=== PATIENT | male | born 1950 | race Caucasian/White ===

== ENCOUNTER 2018-09-05 11:22 | Inpatient (IN) | payer MEDICARE, OTHER ==
[~2018-09-05] VITALS: Ht 175.3 cm; Wt 101.6 kg
[2018-09-05] VITALS (38 sets, daily range): BP systolic 84–131; BP diastolic 61–97
[~2018-09-05 11:22] MED LIST changes: -APIX5TAB PO; -CALC-687 PO; -CEPH500C PO; -GLYB6TAB3 PO; -HYDR25TA4 PO; -INSU300I SQ; -METF-397 PO; -NEBI5TAB8 PO; -NFNEB10T PO; -POTA99TA21 PO; -SITA100T12 PO; -SULF-222 PO
--- OUTSIDE RECORDS SUMMARY | 2018-09-05 11:33 | XMS REPORT | Continuity of Care Document ---
Author Author [facility] [facility] Organization [facility] Address Unknown Phone Unavailable Allergies There is no data. Medications There is no data. Problems There is no data. Procedures There is no data. Results There is no data. Encounters ACCT No. Visit Date/Time Discharge Status Pt. Type Provider Facility Loc./Unit Complaint 02/201808/31/2018 23:43:42 08/31/2018 23:59:59 CLS Outpatient Divya Martinez
[2018-09-05] MEDS: NS IV 1000 ML 1,000 ML IV SCH ×2 (11:40→12:58)
[2018-09-05 11:41] LABS: BASOPHILS % (AUTO) 0 % (0-10); EOSINOPHILS # (AUTO) 0.2 10^3/uL (0.0-0.3); EOSINOPHILS % (AUTO) 2 % (0-10); HEMATOCRIT 41 % (40-54); HEMOGLOBIN 13.6 G/DL (13.3-17.7); LYMPHOCYTES # (AUTO) 1.7 X 10^3 (1.0-4.0); LYMPHOCYTES % (AUTO) 17 % (12-44); MEAN CORPUSCULAR HEMOGLOBIN 29 PG (25-34); MEAN CORPUSCULAR HGB CONC 33 G/DL (32-36); MEAN CORPUSCULAR VOLUME 87 FL (80-99); MEAN PLATELET VOLUME 8.9 FL (7.4-10.4); MONOCYTES % (AUTO) 10 % (0-12); NEUTROPHILS % (AUTO) 71 % (42-75); PLATELET COUNT 298 10^3/uL (130-400); RED BLOOD COUNT 4.72 10^6/uL (4.35-5.85); RED CELL DISTRIBUTION WIDTH 13.6 % (10.0-14.5); WHITE BLOOD COUNT 9.9 10^3/uL (4.3-11.0)
[2018-09-05] MEDS ORDERED: ADENOSINE 6 MG/2 ML (ADENOCARD) VIAL IV ONE (11:45)
[2018-09-05] MEDS ORDERED: DILTIAZEM 25 MG/5 ML INJ (CARDIZEM) VIAL ONE (11:51)
[2018-09-05] MEDS ORDERED: APIXABAN 5 MG (ELIQUIS) TABLET ONE (11:59)
[2018-09-05] MEDS: APIXABAN 5 MG (ELIQUIS) TABLET PO SCH ×2 (12:00→20:51)
[2018-09-05] MEDS ORDERED: DILTIAZEM IV FOR DRIP 125 MG in NS (IVPB) 100 ML IV SCH (12:00)
[2018-09-05 12:06] LABS: PROTHROMBIN TIME PATIENT 13.4 SEC (12.2-14.7)
[2018-09-05 12:08] LABS: ALANINE AMINOTRANSFERASE 29 U/L (0-55); ALBUMIN 4.2 GM/DL (3.2-4.5); ALKALINE PHOSPHATASE 79 U/L (40-136); BILIRUBIN,TOTAL 0.4 MG/DL (0.1-1.0); BUN/CREATININE RATIO 14; CARBON DIOXIDE 25 MMOL/L (21-32); CHLORIDE 101 MMOL/L (98-107); CREATININE SERUM 1.55 MG/DL (0.60-1.30); GFR ESTIMATED 45; GLUCOSE 121 MG/DL (70-105); LIPASE 20 U/L (8-78); POTASSIUM 4.5 MMOL/L (3.6-5.0); SODIUM 138 MMOL/L (135-145); TOTAL PROTEIN 7.6 GM/DL (6.4-8.2)
--- NOTE | 2018-09-05 12:13 | Consultation-Cardiology ---
HPI-Cardiology Cardiology Consultation Date of Consultation 09/05/18 Date of Admission Time Seen by Provider: 12:08 Indication: tachycardia HPI 68 years old gentleman with history of diabetes mellitus, hypertension, was in his usual state of health, went for routine checkup with his primary care physician, noted to be tachycardic with a heart rate of 160-170. He denied any palpitation, denied any chest pain, no shortness of breath, no syncope or near syncopal episode. Has been having some upper respiratory tract infection and started on Sudafed as an outpatient. He was seen in Dr. Martinez's office and given Bystolic 10 mg and sent to the emergency room where he was noted to be in narrow complex tachycardia with a heart rate 160, I gave him adenosine 6 mg IV which helped identifying the underlying rectum to be atrial flutter. Home Medications & Allergies Allergies: Coded Allergies: No Known Drug Allergies (Unverified , 08/17/11) Home Medication List Reviewed: Yes MFI-Rthleb-Ufruug Hx Patient Social History Marital Status: Employed/Student: employed Past Medical History Past medical history as described below Family Medical History Family Medical Hx Noncontributory to his current condition Review of Systems Constitutional: no symptoms reported, see HPI EENTM: see HPI, no symptoms reported Respiratory: see HPI; No cough, No dyspnea on exertion, No hemoptysis, No orthopnea, No phlegm, No short of breath, No stridor, No wheezing, No other Cardiovascular: see HPI; No chest pain, No edema, No Hx of Intervention, No palpitations, No syncope, No vascular heart diseas, No other Gastrointestinal: see HPI Genitourinary: no symptoms reported, see HPI Musculoskeletal: see HPI, back pain, joint pain Skin: see HPI, other (bruise on his right flank secondary to a fall from a ladder last week, no head trauma) Psychiatric/Neurological: No Symptoms Reported, See HPI Reviewed Test Results Reviewed Test Results Lab Laboratory Tests Test 09/05/18 11:34 Range/Units White Blood Count 9.9 4.3-11.0 10^3/uL Red Blood Count 4.72 4.35-5.85 10^6/uL Hemoglobin 13.6 13.3-17.7 G/DL Hematocrit 41 40-54 % Mean Corpuscular Volume 87 80-99 FL Mean Corpuscular Hemoglobin 29 25-34 PG Mean Corpuscular Hemoglobin Concent 33 32-36 G/DL Red Cell Distribution Width 13.6 10.0-14.5 % Platelet Count 298 130-400 10^3/uL Mean Platelet Volume 8.9 7.4-10.4 FL Neutrophils (%) (Auto) 71 42-75 % Lymphocytes (%) (Auto) 17 12-44 % Monocytes (%) (Auto) 10 0-12 % Eosinophils (%) (Auto) 2 0-10 % Basophils (%) (Auto) 0 0-10 % Neutrophils # (Auto) 7.0 1.8-7.8 X 10^3 Lymphocytes # (Auto) 1.7 1.0-4.0 X 10^3 Monocytes # (Auto) 1.0 0.0-1.0 X 10^3 Eosinophils # (Auto) 0.2 0.0-0.3 10^3/uL Basophils # (Auto) 0.0 0.0-0.1 10^3/uL Prothrombin Time 13.4 12.2-14.7 SEC INR Comment 1.0 0.8-1.4 Activated Partial Thromboplast Time 27 24-35 SEC D-Dimer 2.57 H 0.00-0.49 UG/ML Sodium Level 138 135-145 MMOL/L Potassium Level 4.5 3.6-5.0 MMOL/L Chloride Level 101 98-107 MMOL/L Carbon Dioxide Level 25 21-32 MMOL/L Anion Gap 12 5-14 MMOL/L Blood Urea Nitrogen 22 H 7-18 MG/DL Creatinine 1.55 H 0.60-1.30 MG/DL Estimat Glomerular Filtration Rate 45 BUN/Creatinine Ratio 14 Glucose Level 121 H 70-105 MG/DL Calcium Level 10.0 8.5-10.1 MG/DL Corrected Calcium 9.8 8.5-10.1 MG/DL Magnesium Level 2.0 1.8-2.4 MG/DL Total Bilirubin 0.4 0.1-1.0 MG/DL Aspartate Amino Transf (AST/SGOT) 23 5-34 U/L Alanine Aminotransferase (ALT/SGPT) 29 0-55 U/L Alkaline Phosphatase 79 40-136 U/L Total Protein 7.6 6.4-8.2 GM/DL Albumin 4.2 3.2-4.5 GM/DL Lipase 20 8-78 U/L Physical Exam Vital Signs Capillary Refill : Height, Weight, BMI Height: '" Weight: lbs. oz. kg; BMI Method: General Appearance: No Apparent Distress, WD/WN Eyes: Bilateral Eye Normal Inspection, Bilateral Eye PERRL, Bilateral Eye EOMI HEENT: PERRL/EOMI, TMs Normal, Normal ENT Inspection, Pharynx Normal Neck: Full Range of Motion, Normal Inspection, Non Tender, Supple, Carotid Bruit Respiratory: Chest Non Tender, Lungs Clear, Normal Breath Sounds, No Accessory Muscle Use, No Respiratory Distress Cardiovascular: No Edema, No Gallop, No JVD, No Murmur, Normal Peripheral Pulses, Tachycardia Gastrointestinal: Normal Bowel Sounds, No Organomegaly, No Pulsatile Mass, Non Tender, Soft Back: Normal Inspection, No CVA Tenderness, No Vertebral Tenderness, Other ( right flank bruise) Extremity: Normal Capillary Refill, Normal Inspection, Normal Range of Motion, Non Tender, No Calf Tenderness, No Pedal Edema Neurologic/Psychiatric: Alert, Oriented x3, No Motor/Sensory Deficits, Normal Mood/Affect Skin: Normal Color, Warm/Dry, Ecchymosis (right flank bruise) Lymphatic: No Adenopathy A/P-Cardiology Admission Diagnosis Atrial flutter Hypertension Diabetes mellitus Tachycardia Assessment/Plan Atrial flutter with 2-1 conduction, given Adenosine which helped to identify the underlying rhythm. I will start him on Cardizem drip and a bolus, monitor his tolerance and response. If he did not convert overnight I am planning to do SIMON with electrical cardioversion [id number] score of 3, yearly risk of stroke without oral anticoagulation is 3.2 percent. Patient will be starting on Eliquis the first dose to be given in the emergency room Recent upper respiratory tract infection, took Sudafed earlier today. Urinary tract infection, managed by primary care team Hypertension, poorly controlled blood pressure. Was on hydrochlorothiazide and enalapril as an outpatient. Currently on Cardizem drip, will adjust his medication during the hospital stay Diabetes mellitus, managed by primary care physician History of spinal stenosis with back pain and joint pain Status post recent fall from a ladder, no syncope, no head trauma, has a large bruise on his right flank DAIANA ROSARIO MD Sep 05, 2018 12:13
[2018-09-05 12:15] LABS: MYOGLOBIN SERUM 199.9 NG/ML (10.0-92.0)
--- NOTE | 2018-09-05 12:15 | ED Cardiac General ---
History of Present Illness General Chief Complaint: Cardiac/General Problems Stated Complaint: TACHYCARDIA Source: patient Exam Limitations: no limitations History of Present Illness Date Seen by Provider: Sep 05, 2018 Time Seen by Provider: 11:22 Initial Comments Here with report of fast heart rate. Patient does not feel the fast heart rate and only noted that because he went for evaluation with his primary care Dr. bravo and was found to be tachycardic. He was sent to outpatient services for EKG which notes tachycardia in the rate of 160 and somewhat wide appearing complexes but may be SVT. Patient denies chest pain or breathing problems. Patient did receive by bystolic 10 mg by mouth at his doctor's office. Patient reports taking Sudafed this morning for upper respiratory congestion which is not uncommon for him. Denies nausea or vomiting. Timing/Duration: other (unknown) Severity: moderate Location: other (no chest pain) Activities at Onset: none Prior CP/Workup: no prior chest pain Modifying Factors: improves with rest NTG SL DATABASE ADMINISTRATION MANAGER: No ASA po DATABASE ADMINISTRATION MANAGER: No Associated Systoms: No Chest Pain, No Fever/Chills, No Nausea/Vomiting, No Shortness of Air, No Weakness Allergies and Home Medications Allergies Coded Allergies: No Known Drug Allergies (Unverified , 08/17/11) Home Medications Calcium Carbonate/Mag Oxide/Zn 1 Each Tablet, 1 EACH PO DAILY, (Reported) Enalapril Maleate 20 Mg Tablet, 40 MG PO DAILY, (Reported) Glyburide 5 Mg Tablet, 6 MG PO BIDAC, (Reported) Hydrochlorothiazide 25 Mg Tablet, 1 EACH PO DAILY, (Reported) Pioglitazone Hcl/Metformin Hcl 1 Each Tablet, 1 EACH PO BID, (Reported) Potassium 99 Mg Tablet, 99 MG PO DAILY, (Reported) Silodosin 8 Mg Capsule, 8 MG PO DAILY, (Reported) Sitagliptin Phosphate 100 Mg Tablet, 1 EACH PO DAILY, (Reported) Patient Home Medication List Home Medication List Reviewed: Yes Review of Systems Review of Systems Constitutional: see HPI; No chills, No fever EENTM: No Ear Pain; Nose Congestion, Nose Pain Respiratory: Denies Cough, Denies Shortness of Air Cardiovascular: Denies Chest Pain; Irregular Heart Rate Gastrointestinal: Denies Abdominal Pain, Denies Nausea, Denies Vomiting Genitourinary: No Symptoms Reported Musculoskeletal: no symptoms reported Skin: change in color (mild erythema in the face), rash (rash to the face near the nose which she states is not uncommon) Psychiatric/Neurological: No Symptoms Reported All Other Systems Reviewed Negative Unless Noted: Yes Past Agrmzly-Sawqms-Vjavbq Hx Past Med/Social Hx: Reviewed Nursing Past Med/Soc Hx Patient Social History Alcohol Use: Denies Use Recreational Drug Use: No Smoking Status: Never a Smoker Past Medical History Surgeries: No Respiratory: No Cardiac: Yes Hypertension Neurological: No Reproductive Disorders: Yes (ED) Genitourinary: No Gastrointestinal: No Musculoskeletal: Yes (sciatica) Endocrine: Yes Diabetes, Non-Insulin dep Psychosocial: No Family Medical History Reviewed Nursing Family Hx Physical Exam Vital Signs Capillary Refill : Height, Weight, BMI Height: '" Weight: lbs. oz. kg; BMI Method: General Appearance: No Apparent Distress, WD/WN HEENT: PERRL/EOMI, Pharynx Normal Neck: Non Tender, Supple Respiratory: Lungs Clear, Normal Breath Sounds Cardiovascular: No Murmur, Irregularly Irregular, Tachycardia Gastrointestinal: Normal Bowel Sounds, Non Tender, Soft Extremity: Normal Range of Motion, Non Tender Neurologic/Psychiatric: Alert, Oriented x3 Skin: Warm/Dry, Erythema, Rash, Other (does have mild rash around the lips and nose that he states is related to environmental exposure and the common for him that is associated with some mild erythema) Progress/Results/Core Measures Results/Orders Lab Results Laboratory Tests Test 09/05/18 11:34 Range/Units White Blood Count 9.9 4.3-11.0 10^3/uL Red Blood Count 4.72 4.35-5.85 10^6/uL Hemoglobin 13.6 13.3-17.7 G/DL Hematocrit 41 40-54 % Mean Corpuscular Volume 87 80-99 FL Mean Corpuscular Hemoglobin 29 25-34 PG Mean Corpuscular Hemoglobin Concent 33 32-36 G/DL Red Cell Distribution Width 13.6 10.0-14.5 % Platelet Count 298 130-400 10^3/uL Mean Platelet Volume 8.9 7.4-10.4 FL Neutrophils (%) (Auto) 71 42-75 % Lymphocytes (%) (Auto) 17 12-44 % Monocytes (%) (Auto) 10 0-12 % Eosinophils (%) (Auto) 2 0-10 % Basophils (%) (Auto) 0 0-10 % Neutrophils # (Auto) 7.0 1.8-7.8 X 10^3 Lymphocytes # (Auto) 1.7 1.0-4.0 X 10^3 Monocytes # (Auto) 1.0 0.0-1.0 X 10^3 Eosinophils # (Auto) 0.2 0.0-0.3 10^3/uL Basophils # (Auto) 0.0 0.0-0.1 10^3/uL Prothrombin Time 13.4 12.2-14.7 SEC INR Comment 1.0 0.8-1.4 Activated Partial Thromboplast Time 27 24-35 SEC D-Dimer 2.57 H 0.00-0.49 UG/ML Sodium Level 138 135-145 MMOL/L Potassium Level 4.5 3.6-5.0 MMOL/L Chloride Level 101 98-107 MMOL/L Carbon Dioxide Level 25 21-32 MMOL/L Anion Gap 12 5-14 MMOL/L Blood Urea Nitrogen 22 H 7-18 MG/DL Creatinine 1.55 H 0.60-1.30 MG/DL Estimat Glomerular Filtration Rate 45 BUN/Creatinine Ratio 14 Glucose Level 121 H 70-105 MG/DL Calcium Level 10.0 8.5-10.1 MG/DL Corrected Calcium 9.8 8.5-10.1 MG/DL Magnesium Level 2.0 1.8-2.4 MG/DL Total Bilirubin 0.4 0.1-1.0 MG/DL Aspartate Amino Transf (AST/SGOT) 23 5-34 U/L Alanine Aminotransferase (ALT/SGPT) 29 0-55 U/L Alkaline Phosphatase 79 40-136 U/L Total Protein 7.6 6.4-8.2 GM/DL Albumin 4.2 3.2-4.5 GM/DL Lipase 20 8-78 U/L My Orders Orders - MEG BERTRAND MD Cbc With Automated Diff (09/05/18 11:30) Magnesium (09/05/18 11:30) Chest 1 View, Ap/Pa Only (09/05/18 11:30) Ekg Tracing (09/05/18 11:30) Cardiac Profile 1 (09/05/18 11:30) Comprehensive Metabolic Panel (09/05/18 11:30) Myoglobin Serum (09/05/18 11:30) Protime With Inr (09/05/18 11:30) Partial Thromboplastin Time (09/05/18 11:30) O2 (09/05/18 11:30) Monitor-Rhythm Ecg Trace Only (09/05/18 11:30) Lipid Panel (09/06/18 06:00) Saline Lock/Iv-Start (09/05/18 11:30) Lipase (09/05/18 11:30) Fibrin Degradation Products (09/05/18 11:30) Adenosine Injection (Adenocard Injection (09/05/18 11:45) Diltiazem Injection (Cardizem Injection) (09/05/18 11:51) Ns (Ivpb) (Sodium C... W/Diltiazem Iv Fo (09/05/18 12:00) Apixaban Tablet (Eliquis Tablet) (09/05/18 11:59) Ekg Tracing (09/05/18 12:09) Progress Progress Note : Progress Note Seen and evaluated on arrival. EKG done earlier today reviewed and shows SVT with wide complex. I did discuss the case with Dr. Rodriguez at 1127 and he will come to the emergency department for evaluation due to odd appearing tachycardia that has some wide characteristics especially in the inferior leads. This may be rate dependent. IV, labs, chest x-ray normal saline 1 L bolus and EKG ordered. 1147: Dr. Rodriguez is evaluated. We will gave adenosine and do note atrial flutter underlying. Cardizem bolus at 10 mg IV and drip at 10 mg an hour to be initiated. Eliquis 5 mg by mouth ordered. Patient to be admitted to ICU. I did discuss the case with Dr. Martinez 1210 and she accepts patient for admission, inpatient status with Dr. Rodriguez on consult. Patient also has urinary tract infection that she has been following from the office. She has culture pending there. He is currently on antibiotics but we will initiate Rocephin while in the hospital. Patient has no findings of sepsis and no indication for blood cultures her lactic acid at this point. Tachycardia is related to cardiac etiology and not sepsis. Dr. Martinez and I both agree on this. Admit to the ICU. 1224: Patient more comfortable but heart rate has increased again. Increase Cardizem drip to 20 mg an hour. Initial ECG Impression Date: Sep 05, 2018 Initial ECG Impression Time: 11:26 Initial ECG Rate: 158 Initial ECG Rhythm: SVT Initial ECG Comparisson: Changed Comment SVT with rate of 158. No evidence of ST elevation [place]. Markedly changed from previous of 16 August 2011. Interpreted by me. Consulted with lead systems engineer. EKG : EKG Time: 11:45 Rate: 135 Rhythm: SVT Comment Continued supraventricular tachycardia but notes a flutter underlying rhythm with adenosine administration. No evidence of ST elevation [place]. Interpreted by me. Consulted with lead systems engineer. Departure Communication (Admissions) Time/Spoke to Admitting Phy: 12:10 Time/Spoke to Consulting Phy: 11:27 Impression Primary Impression: Atrial flutter with rapid ventricular response Additional Impression: Urinary tract infection Qualified Codes: N39.0 - Urinary tract infection, site not specified Disposition: ADMITTED INPATIENT Condition: Stable Admissions Decision to Admit Reason: Admit from ER (General) Decision to Admit/Date: Sep 05, 2018 Time/Decision to Admit Time: 11:47 Departure-Patient Inst. Referrals: MILAD MARTINEZ DO (PCP/Family) Primary Care Physician MEG BERTRAND MD Sep 05, 2018 12:15
[2018-09-05] MEDS: DILTIAZEM INJECTION 125 MG in NS (IVPB) 100 ML IV SCH ×2 (12:24→20:47)
--- OUTSIDE RECORDS SUMMARY | 2018-09-05 12:54 | XMS REPORT | Continuity of Care Document ---
Author Author [facility] Organization aa[facility] Address Unknown Phone Unavailable Allergies There is no data. Medications There is no data. Problems There is no data. Procedures There is no data. Results There is no data. Encounters ACCT No. Visit Date/Time Discharge Status Pt. Type Provider Facility Loc./Unit Complaint 02/201808/31/2018 23:43:42 08/31/2018 23:59:59 CLS Outpatient Divya Martinez
--- NOTE | 2018-09-05 13:08 | Diagnostic Imaging Report ---
Indication: Tachycardia. Time of exam: 12:27 PM No prior studies are available for comparison. The heart is mildly enlarged. There is mild central congestion but no overt failure. Right hemidiaphragm is mildly elevated. No effusion is seen. There is no pneumothorax Impression: Mild cardiomegaly and central congestion. Dictated by: Dictated on workstation # [id number]
[2018-09-05] MEDS ORDERED: NS IV 1000 ML 1,000 ML IV SCH (13:45)
[2018-09-05] MEDS ORDERED: POTA99TA21 PO (14:01)
[2018-09-05] MEDS ORDERED: METF-397 PO (14:01)
[2018-09-05] MEDS ORDERED: HYDR25TA4 PO (14:01)
[2018-09-05] MEDS ORDERED: CALC-687 PO (14:01)
[2018-09-05] MEDS ORDERED: SULF-222 PO (14:01)
[2018-09-05] MEDS ORDERED: GLYB6TAB3 PO (14:01)
[2018-09-05] MEDS ORDERED: FLU QUADRIvalent (5+ YOA) 2018-2019 (AFLURIA) 0.5 ML IM ONE (14:30)
[2018-09-05] MEDS: cefTRIAXone 1 GM/NS 50 ML IVPB IV SCH ×2 (14:33)
[2018-09-05] MEDS: inSUlin ASPART (NovoLOG) 1 UNIT/0.01 ML (CHARGE PER UNIT) SC SCH ×2 (14:40→21:43)
[2018-09-05] MEDS ORDERED: INSU300I SQ (14:44)
[2018-09-05] MEDS ORDERED: SITA100T12 PO (14:44)
[2018-09-05] MEDS ORDERED: ENAL20TA PO (14:44)
--- NOTE | 2018-09-05 18:30 | History & Physicial ---
History of Present Illness History of Present Illness Reason for visit/HPI This is a 68 year old male who presented to my office for routine followup on his diabetes, hypertension and renal insufficiency who was noted to be in SVT with a heart rate in the 160s. He denied being symptomatic including denying palpitations, chest pain, dyspnea, dizziness, etc. He did admit to taking sudafed for a cold this morning and also stated he had been taking excedrin for pain in his testicle. He was also found to have a urinary tract infection. I recommended direct admission to the hospital but the patient refused. He did agree to go for a stat EKG which showed a wide QRS complex with RBBB and heart rate of 163. He was instructed to go directly to the emergency room and was given adenosine which then revealed underlying atrial flutter. Cardiology was consulted. He was started on a cardizem drip and admitted to the ICU. Date of Admission Sep 05, 2018 at 12:50 pm Date Seen by a Provider: Sep 05, 2018 Time Seen by a Provider: 10:00 I consulted on this patient on 09/05/18 18:21 Attending Physician Divya Martinez DO Admitting Physician Divya Martinez DO Consult Allergies and Home Medications Allergies Coded Allergies: No Known Drug Allergies (Unverified , 08/17/11) Home Medications Calcium Carbonate/Mag Oxide/Zn 1 Each Tablet, 1 TAB PO DAILY, (Reported) Enalapril Maleate 20 Mg Tablet, 20 MG PO BID, (Reported) LAST FILLED #180 18 Glyburide,Micronized 6 Mg Tablet, 6 MG PO BID, (Reported) Hydrochlorothiazide 25 Mg Tablet, 25 MG PO DAILY, (Reported) Insulin Glargine,Hum.rec.anlog 300 Unit/1 Ml Insuln.pen, 50 UNIT SQ DAILY, ( Reported) Metformin HCl 500 Mg Tablet, 500 MG PO BID, (Reported) Potassium Gluconate 99 Mg Tablet, 99 MG PO DAILY, (Reported) Sitagliptin Phosphate 100 Mg Tablet, 100 MG PO DAILY, (Reported) Sulfamethoxazole/Trimethoprim 1 Each Tablet, 1 TAB PO BID PRN for UTI, (Reported ) Patient Home Medication List Home Medication List Reviewed: Yes Past Ighkqnv-Qmgsiw-Forgjy Hx Patient Social History Marrital Status: Employed/Student: employed Alcohol Use: Denies Use Recreational Drug Use: No Smoking Status: Never a Smoker Physical Abuse Screen: No Sexual Abuse: No Recent Foreign Travel: No Contact w/other who traveled: No Recent Hopitalizations: No Recent Infectious Disease Expo: No Immunizations Up To Date Pediatric: No Seasonal Allergies Seasonal Allergies: No Surgeries No Respiratory No Cardiovascular Yes Hypertension Neurological No Reproductive System Hx Reproductive Disorders: Yes (ED) Sexually Transmitted Disease: No Genitourinary No Kidney Stones, UTI-Chronic Gastrointestinal No Musculoskeletal No Endocrine History of Endocrine Disorders: Yes Endocrine Disorders: Diabetes, Non-Insulin dep Are Your Blood Sugars Over 250: No HEENT History of HEENT Disorders: No Cancer No Psychosocial History of Psychiatric Problem: No Integumentary History of Skin or Integumenta: No Blood Transfusions History of Blood Disorders: No Adverse Reaction to a Blood Tr: No Review of Systems Constitutional: No no symptoms reported, No see HPI, No chills, No diaphoresis , No dizziness, No fever, No malaise, No weakness, No weight gain, No weight loss, No other EENTM: No see HPI, No no symptoms reported, No ear discharge, No hearing loss, No ear pain, No blurred vision, No double vision, No eye pain, No tearing, No vision loss, No dental problems, No hoarseness, No mouth pain, No mouth swelling , No epistaxis, No nose congestion, No nose pain, No throat pain, No throat swelling, No other Respiratory: cough Cardiovascular: No no symptoms reported, No see HPI, No chest pain, No edema, No Hx of Intervention, No palpitations, No syncope, No vascular heart diseas, No other Gastrointestinal: No RUQ, No LUQ, No RLQ, No LLQ, No no symptoms reported, No see HPI, No abdominal pain, No constipation, No diarrhea, No dysphagia, No hematemesis, No heartburn, No jaundice, No loss of appetite, No melena, No nausea, No vomiting, No other Genitourinary: dysuria, other (testicle pain/swelling) Musculoskeletal: No no symptoms reported, No see HPI, No back pain, No gout, No joint pain, No joint swelling, No muscle pain, No muscle stiffness, No muscle cramps, No muscle twitching, No muscle weakness, No neck pain, No other Skin: No no symptoms reported, No see HPI, No change in color, No change in hair/nails, No dryness, No hx of skin cancer, No lesions, No lumps, No pruritus , No rash, No other Psychiatric/Neurological: Denies No Symptoms Reported, Denies See HPI, Denies Anxiety, Denies Depressed, Denies Emotional Problems, Denies Headache, Denies Numbness, Denies Paresthesia, Denies Pre-Existing Deficit, Denies Seizure, Denies Tingling, Denies Tremors, Denies Weakness, Denies Other Physical Exam Vital Signs Vital Signs - First Documented 09/05/18 09/05/18 11:25 13:30 Temp 98.1 Pulse 162 Resp 18 B/P (MAP) 164/108 (126) Pulse Ox 94 O2 Delivery Room Air Capillary Refill : Less Than 3 Seconds Height, Weight, BMI Height: 5'9.00" Weight: 224lbs. 6.0oz. 101.178903oj; 33.1 BMI Method:Stated General Appearance: No Apparent Distress HEENT: Normal ENT Inspection Neck: Supple Respiratory: Lungs Clear Cardiovascular: Systolic Murmur, Gallop/S4, Tachycardia Gastrointestinal: Normal Bowel Sounds, Non Tender, Soft Rectal: Deferred Back: No CVA Tenderness Extremity: Non Tender, No Calf Tenderness, No Pedal Edema Neurologic/Psychiatric: Alert, Oriented x3 Skin: Warm/Dry, Ecchymosis (to right abdomen from recent fall) Comments Laboratory Tests 09/05/18 11:34: White Blood Count 9.9, Red Blood Count 4.72, Hemoglobin 13.6, Hematocrit 41, Mean Corpuscular Volume 87, Mean Corpuscular Hemoglobin 29, Mean Corpuscular Hemoglobin Concent 33, Red Cell Distribution Width 13.6, Platelet Count 298, Mean Platelet Volume 8.9, Neutrophils (%) (Auto) 71, Lymphocytes (%) (Auto) 17, Monocytes (%) (Auto) 10, Eosinophils (%) (Auto) 2, Basophils (%) (Auto) 0, Neutrophils # (Auto) 7.0, Lymphocytes # (Auto) 1.7, Monocytes # (Auto) 1.0, Eosinophils # (Auto) 0.2, Basophils # (Auto) 0.0, Prothrombin Time 13.4, INR Comment 1.0, Activated Partial Thromboplast Time 27, D-Dimer 2.57H, Sodium Level 138, Potassium Level 4.5, Chloride Level 101, Carbon Dioxide Level 25, Anion Gap 12, Blood Urea Nitrogen 22H, Creatinine 1.55H, Estimat Glomerular Filtration Rate 45, BUN/Creatinine Ratio 14, Glucose Level 121H, Calcium Level 10.0, Corrected Calcium 9.8, Magnesium Level 2.0, Total Bilirubin 0.4, Aspartate Amino Transf (AST/SGOT) 23, Alanine Aminotransferase (ALT/SGPT) 29, Alkaline Phosphatase 79, Myoglobin 199.9H, Troponin I < 0.30, Total Protein 7.6 , Albumin 4.2, Lipase 20 09/05/18 14:31: Glucometer 82 09/05/18 17:25: Glucometer 127H Assessment/Plan Assessment and Plan 1. Atrial Flutter--admit to ICU on cardizem drip, eliquis started, plan is cardioversion tomorrow by cardiology unless he converts back to NSR 2. Hypertension--monitor BP on cardizem drip 3. DMII--start accuchecks with SSI 4. Acute on Chronic Renal Insufficiency--hydrate and monitor Cr 5. UTI--cover with rocephin Admission Diagnosis Admission Status: Inpatient Order (span 2 midnights) Reason for Inpatient Admission: Admitted to ICU on cardizem drip Clinical Quality Measures AMI/AHF: ASA po Prior to arrival: No DVT/VTE Risk/Contraindication: Risk Factor Score Per Nursin RFS Level Per Nursing on Admit: 3=High DIVYA MARTINEZ DO Sep 05, 2018 6:30 pm
[2018-09-06] VITALS (28 sets, daily range): BP systolic 78–119; BP diastolic 41–76
[2018-09-06 04:07] LABS: BASOPHILS % (AUTO) 0 % (0-10); EOSINOPHILS # (AUTO) 0.2 10^3/uL (0.0-0.3); EOSINOPHILS % (AUTO) 2 % (0-10); HEMATOCRIT 39 % (40-54); HEMOGLOBIN 12.7 G/DL (13.3-17.7); LYMPHOCYTES # (AUTO) 1.8 X 10^3 (1.0-4.0); LYMPHOCYTES % (AUTO) 15 % (12-44); MEAN CORPUSCULAR HEMOGLOBIN 29 PG (25-34); MEAN CORPUSCULAR HGB CONC 33 G/DL (32-36); MEAN CORPUSCULAR VOLUME 88 FL (80-99); MEAN PLATELET VOLUME 9.3 FL (7.4-10.4); MONOCYTES # (AUTO) 1.1 X 10^3 (0.0-1.0); MONOCYTES % (AUTO) 9 % (0-12); NEUTROPHILS # (AUTO) 8.4 X 10^3 (1.8-7.8); NEUTROPHILS % (AUTO) 73 % (42-75); PLATELET COUNT 296 10^3/uL (130-400); RED BLOOD COUNT 4.43 10^6/uL (4.35-5.85); RED CELL DISTRIBUTION WIDTH 13.5 % (10.0-14.5); WHITE BLOOD COUNT 11.4 10^3/uL (4.3-11.0)
[2018-09-06 04:35] LABS: CREATININE SERUM 1.37 MG/DL (0.60-1.30); PHOSPHORUS 3.4 MG/DL (2.3-4.7); POTASSIUM 4.3 MMOL/L (3.6-5.0)
[2018-09-06] MEDS: inSUlin ASPART (NovoLOG) 1 UNIT/0.01 ML (CHARGE PER UNIT) SC SCH (04:41)
[2018-09-06 05:01] LABS: CHOLESTEROL 152 MG/DL (< 200); HDL CHOLESTEROL 22 MG/DL (40-60); TRIGLYCERIDES 90 MG/DL (<150); VLDL CHOLESTEROL 18 MG/DL (5-40)
[2018-09-06] MEDS ORDERED: POTASSIUM CL 10MEQ/50ML IVPB 50 ML IV SCH (06:00)
[2018-09-06] MEDS ORDERED: KCL 20 MEQ TAB (K-DUR) PO SCH (06:00)
[2018-09-06] MEDS ORDERED: MAGNESIUM 1 GM/100 ML IVPB 100 ML IV SCH (06:00)
--- NOTE | 2018-09-06 07:01 | Diagnostic Imaging Report ---
INDICATION: Heart disease. Comparison made with prior examination 09/05/2018. FINDINGS: The heart size, mediastinal configuration, and pulmonary vascularity are within normal limits. There is no pleural effusion, pneumothorax, or pneumonia. The osseous structures are unremarkable. IMPRESSION: No acute cardiopulmonary abnormality. Dictated by: Dictated on workstation # [id number]
--- NOTE | 2018-09-06 07:04 | Cardiology Progress Note ---
Subjective Date Seen by Provider: Sep 06, 2018 Time Seen by Provider: 06:58 Subjective/Events-last exam Patient is in bed, converted to sinus rhythm early this morning, had few episodes of hypoxemia while asleep Review of Systems General: No Chills, No Night Sweats, No Fatigue, No Malaise, No Appetite, No Other HEENT: No Head Aches, No Visual Changes, No Eye Pain, No Ear Pain, No Dysphasia , No Sinus Congestion, No Post Nasal Drip, No Sore Throat, No Other Pulmonary: No Dyspnea, No Cough, No Pleuritic Chest Pain, No Other Cardiovascular: No: Chest Pain, Palpitations, Orthopnea, Paroxysmal Noc. Dyspnea, Edema, Lt Headedness, Other Objective-Cardiology Exam Last Set of Vital Signs Vital Signs 09/06/18 06:30 Pulse 70 Resp 12 B/P (MAP) 107/60 (76) Pulse Ox 90 O2 Delivery Nasal Cannula O2 Flow Rate 2.00 Capillary Refill : Less Than 3 Seconds I&O Intake and Output 09/06/18 00:00 Intake Total 505 ml Output Total 250 ml Balance 255 ml Intake Oral 380 ml IV Total 125 ml Output Urine Total 250 ml Daily Weight Change No General: Alert, Oriented X3, Cooperative HEENT: Atraumatic, PERRLA Neck: Supple, No JVD, No Thyromegaly Lungs: Clear to Auscultation, Normal Air Movement Heart: Regular Rate, Normal S1, Normal S2, No Murmurs Abdomen: Normal Bowel Sounds, Soft, No Tenderness, No Hepatosplenomegaly, No Masses Extremities: No Clubbing, No Cyanosis, No Edema, Normal Pulses, No Tenderness/ Swelling Skin: No Rashes, No Breakdown, No Significant Lesion Neuro: Normal Gait, Normal Speech, Strength at 5/5 X4 Ext, Normal Tone, Sensation Intact Psych/Mental Status: Mental Status NL, Mood NL Results Lab Laboratory Tests 09/05/18 11:34 09/06/18 03:05 A/P-Cardiology Admission Diagnosis Atrial flutter Hypertension Diabetes mellitus Tachycardia Assessment/Plan Paroxysmal atrial flutter, back to sinus rhythm while on cardizem drip, doing well, underlying cause is probably sleep apnea, need a sleep studly as an outpatient, asking to wait for now [id number] score of 3, yearly risk of stroke without oral anticoagulation is 3.2 percent. Patient will be starting on Eliquis Hypoxemia at night while asleep, probably have sleep apnea, consider sleep study as an outpatient, patient is asking to wait Acute on Chronic renal insuf, dehydration, I will stop potassium and HCTZ and monitor renal function Recent upper respiratory tract infection Urinary tract infection, managed by primary care team Hypertension, good control, stop HCTZ and continue Bystolic and Enalapril Diabetes mellitus, managed by primary care physician History of spinal stenosis with back pain and joint pain Status post recent fall from a ladder, no syncope, no head trauma, has a large bruise on his right flank Clinical Quality Measures AMI/AHF: ASA po Prior to arrival: No DVT/VTE Risk/Contraindication: Risk Factor Score Per Nursin RFS Level Per Nursing on Admit: 3=High DAIANA ROSARIO MD Sep 06, 2018 07:04
[2018-09-06] MEDS ORDERED: NEBI5TAB8 PO (07:05)
[2018-09-06] MEDS ORDERED: APIX5TAB PO (07:05)
--- NOTE | 2018-09-06 07:38 | Pulmonary Consultation ---
History of Present Illness History of Present Illness Date of Consultation 09/06/18 07:24 Time Seen by Provider: 07:24 Date of Admission Reason for Visit: tachycardia History of Present Illness 89yo with hx of DM, HTN, presented to ED secondary to tachycardia rate 160-170. He denied palpitations, CP, SOB, Syncope. Pt was placed on amiodarone after receiving 6mg of Adenosine. RN states pt has obvious severe EMMIE, loud snoring, and witnessed apneas by the RESIDENTIAL [employer] TECHNICIAN. Dr. Rodriguez is consulting me for EMMIE workup. He has not had sleep testing in the past. Allergies and Home Medications Allergies Coded Allergies: No Known Drug Allergies (Unverified , 08/17/11) Home Medications Apixaban 5 Mg Tablet, 5 MG PO BID Prescribed by: DAIANA RODRIGUEZ on 09/06/18 07 Calcium Carbonate/Mag Oxide/Zn 1 Each Tablet, 1 TAB PO DAILY, (Reported) Enalapril Maleate 20 Mg Tablet, 20 MG PO BID, (Reported) LAST FILLED #180 12-22-17 Glyburide,Micronized 6 Mg Tablet, 6 MG PO BID, (Reported) Hydrochlorothiazide 25 Mg Tablet, 25 MG PO DAILY, (Reported) Insulin Glargine,Hum.rec.anlog 300 Unit/1 Ml Insuln.pen, 50 UNIT SQ DAILY, ( Reported) Metformin HCl 500 Mg Tablet, 500 MG PO BID, (Reported) Nebivolol HCl 5 Mg Tablet, 5 MG PO DAILY Prescribed by: DAIANA RODRIGUEZ on 09/06/18 07 Potassium Gluconate 99 Mg Tablet, 99 MG PO DAILY, (Reported) Sitagliptin Phosphate 100 Mg Tablet, 100 MG PO DAILY, (Reported) Sulfamethoxazole/Trimethoprim 1 Each Tablet, 1 TAB PO BID PRN for UTI, (Reported ) Past Ffinhvw-Sgxftv-Aykooq Hx Past Med/Social Hx: Reviewed Nursing Past Med/Soc Hx Patient Social History Alcohol Use: Denies Use Recreational Drug Use: No Smoking Status: Never a Smoker Recent Foreign Travel: No Contact w/Someone Who Travel: No Recent Infectious Disease Expo: No Recent Hopitalizations: No Immunizations Up To Date PED Vaccines UTD: No Seasonal Allergies Seasonal Allergies: No Past Medical History Surgeries: No Respiratory: No Cardiac: Yes Hypertension Neurological: No Reproductive Disorders: Yes (ED) Sexually Transmitted Disease: No Genitourinary: No Kidney Stones, UTI-Chronic Gastrointestinal: No Musculoskeletal: No Endocrine: Yes Diabetes, Non-Insulin dep Are Your Blood Sugars Over 250: No HEENT: No Cancer: No Psychosocial: No Integumentary: No Blood Disorders: No Adverse Reaction/Blood Tranf: No Family Medical History Reviewed Nursing Family Hx Sepsis Event Evaluation Height, Weight, BMI Height: 5'9.00" Weight: 224lbs. 0.6oz. 101.539285hm; 33.1 BMI Method:Stated Exam Exam Vital Signs Date Time Temp Pulse Resp B/P (MAP) Pulse Ox O2 Delivery O2 Flow Rate FiO2 09/06/18 06:30 70 12 107/60 (76) 90 Nasal Cannula 2.00 09/06/18 06:15 66 16 90/70 (77) 87 Nasal Cannula 2.00 09/06/18 06:00 73 18 111/67 (82) 90 Nasal Cannula 2.00 09/06/18 05:45 68 11 105/68 (80) 97 Nasal Cannula 2.00 09/06/18 05:30 63 17 96/63 (74) 92 Nasal Cannula 2.00 09/06/18 05:15 66 16 101/62 (75) 88 Nasal Cannula 2.00 09/06/18 05:00 64 16 107/56 (73) 92 Nasal Cannula 2.00 09/06/18 04:45 65 17 109/68 (82) 94 Nasal Cannula 2.00 09/06/18 04:30 67 16 95/56 (69) 91 Nasal Cannula 2.00 09/06/18 04:15 61 14 93/60 (71) 88 Nasal Cannula 2.00 09/06/18 04:00 65 14 101/62 (75) 95 Nasal Cannula 2.00 09/06/18 04:00 97.2 09/06/18 04:00 Nasal Cannula 2.00 09/06/18 03:45 61 15 78/41 (53) 90 Nasal Cannula 2.00 09/06/18 03:30 68 26 104/58 (73) 95 Nasal Cannula 2.00 09/06/18 03:15 61 12 93/54 (67) 85 Nasal Cannula 2.00 09/06/18 03:00 64 13 101/66 (78) 93 Nasal Cannula 2.00 09/06/18 02:45 59 16 101/59 (73) 91 Nasal Cannula 2.00 09/06/18 02:30 62 16 93/58 (70) 91 Nasal Cannula 2.00 09/06/18 02:15 63 14 102/59 (73) 88 Nasal Cannula 2.00 09/06/18 02:00 62 19 97/62 (74) 88 Nasal Cannula 2.00 09/06/18 01:45 64 18 98/58 (71) 96 Nasal Cannula 2.00 09/06/18 01:30 68 19 96 Nasal Cannula 2.00 09/06/18 01:15 63 26 101/67 (78) 95 Nasal Cannula 2.00 09/06/18 01:08 64 09/06/18 01:00 80 19 108/69 (82) 93 Nasal Cannula 2.00 09/06/18 00:45 79 28 109/71 (84) 96 Nasal Cannula 2.00 09/06/18 00:30 80 16 84/76 (79) 89 Nasal Cannula 2.00 09/06/18 00:15 80 14 115/74 (88) 95 Nasal Cannula 2.00 09/06/18 00:00 Nasal Cannula 2.00 09/06/18 00:00 97.2 97 09/06/18 00:00 79 10 114/65 (81) 95 Nasal Cannula 2.00 09/05/18 23:45 78 12 116/77 (90) 95 Nasal Cannula 2.00 09/05/18 23:30 80 21 116/64 (81) 97 Nasal Cannula 2.00 09/05/18 23:15 80 21 103/77 (86) 96 Nasal Cannula 2.00 09/05/18 23:00 80 26 121/73 (89) 95 Nasal Cannula 2.00 09/05/18 22:45 79 20 114/72 (86) 99 Nasal Cannula 2.00 09/05/18 22:30 80 13 114/97 (103) 97 Nasal Cannula 2.00 09/05/18 22:16 Nasal Cannula 2.00 09/05/18 22:15 80 24 112/72 (85) 90 Room Air 09/05/18 22:00 80 20 108/68 (81) 91 Room Air 09/05/18 21:45 80 25 110/70 (83) 93 Room Air 09/05/18 21:30 80 26 114/77 (89) 97 Room Air 09/05/18 21:15 80 13 107/69 (82) 95 Room Air 09/05/18 21:00 80 17 116/71 (86) 90 Room Air 09/05/18 20:45 80 20 111/75 (87) 92 Room Air 09/05/18 20:30 80 18 116/69 (85) 95 Room Air 09/05/18 20:15 80 10 126/86 (99) 95 Room Air 09/05/18 20:00 90 Room Air 09/05/18 20:00 81 27 113/73 (86) 95 Room Air 09/05/18 19:45 80 20 115/86 (96) 95 Room Air 09/05/18 19:30 128 20 131/83 (99) 95 Room Air 09/05/18 19:24 99.0 138 23 121/92 (102) 96 Room Air 09/05/18 19:15 96 20 117/80 (92) 91 Room Air 09/05/18 19:00 81 19 117/73 (88) Room Air 09/05/18 19:00 81 09/05/18 18:45 103 Room Air 09/05/18 18:30 81 18 107/72 (84) Room Air 09/05/18 18:00 81 34 116/72 (87) Room Air 09/05/18 17:45 130 19 84/61 (69) 90 Room Air 09/05/18 17:30 108 14 105/65 (78) 92 Room Air 09/05/18 17:15 120 24 111/64 (80) 90 Room Air 09/05/18 17:00 134 14 106/96 (99) 96 Room Air 09/05/18 16:55 90 Room Air 09/05/18 16:50 108 44 102/86 (91) 94 Room Air 09/05/18 16:45 120 29 86/66 (73) 96 Room Air 09/05/18 16:45 98.3 09/05/18 16:30 110 18 109/88 (95) 94 Room Air 09/05/18 16:15 86 22 90/71 (77) 95 Room Air 09/05/18 16:00 123 37 96/71 (79) 94 Room Air 09/05/18 15:00 80 19 118/67 (84) Room Air 09/05/18 14:30 79 123/85 (98) Room Air 09/05/18 14:15 80 121/83 (96) Room Air 09/05/18 14:00 80 110/83 (92) Room Air 09/05/18 14:00 Room Air 09/05/18 13:45 80 12 119/84 (96) Room Air 09/05/18 13:30 80 18 116/81 (93) Room Air 09/05/18 13:24 80 09/05/18 12:52 84 18 119/77 (91) 99 09/05/18 11:54 124 18 132/100 99 09/05/18 11:25 98.1 162 18 164/108 (126) 94 I & O 09/06/18 07:00 Intake Total 505 ml Output Total 1100 ml Balance -595 ml Height & Weight Height: 5'9.00" Weight: 224lbs. 0.6oz. 101.076124fk; 33.1 BMI Method:Stated General Appearance: No Apparent Distress HEENT: Normal ENT Inspection Neck: Supple Respiratory: Lungs Clear Cardiovascular: Systolic Murmur, Gallop/S4, Tachycardia Capillary Refill: Less Than 3 Seconds Extremity: Non Tender, No Calf Tenderness, No Pedal Edema Neurologic/Psychiatric: Alert, Oriented x3 Skin: Warm/Dry, Ecchymosis (to right abdomen from recent fall) Lymphatic: No Adenopathy Results Lab Laboratory Tests 09/05/18 11:34 09/06/18 03:05 Assessment/Plan Assessment/Plan Afib RVR -Currently on Amio gtt -Dr. Rodriguez is following Snoring, witnessed apnea by RN, -I will arrange for PSG as out patient. I will see him in my office for follow up. Acute I discussed with patient in detail with at bedside. regarding EMMIE and benefits of CPAP therapy. Pt is going to think about it. He is not sure he would want CPAP therapy even if this prolongs his life expectancy. JESSICA ANN DO Sep 06, 2018 07:38
[2018-09-06] MEDS: APIXABAN 5 MG (ELIQUIS) TABLET PO SCH (08:32)
[2018-09-06] MEDS: cefTRIAXone 1 GM/NS 50 ML IVPB IV SCH ×2 (09:57)
[2018-09-06] MEDS ORDERED: CEPH500C PO (10:22)
[2018-09-06] MEDS ORDERED: NFNEB10T PO (10:22)
--- NOTE | 2018-09-06 10:24 | Discharge Inst-Cardiology ---
Discharge Inst-Cardiac Discharge Medications New, Converted or Re-Newed RX: Transmitted to Pharmacy Patient Instructions Patient Instructions: Fwup with me in 1 week Activity & Diet Discharge Diet: ADA Diet, Cardiac Diet Drink 6-8 Glasses/Fluids/Day: Yes Activity as Tolerated: Yes Orders-Post D/C & Referrals Pneu Vac Indicated: Yes MILAD TRUJILLO DO Sep 06, 2018 10:24 am
--- NOTE | 2018-09-06 11:05 | Discharge Summary ---
Diagnosis/Chief Complaint Date of Admission Sep 05, 2018 at 12:50 pm Date of Discharge Discharge Date: Sep 06, 2018 Discharge Diagnosis 1. Atrial Flutter--resolved 2. Nocturnal Hypoxemia/Apnea--needs sleep study 3. Hypertension 4. Acute on Chronic Renal Insufficiency/Dehydration 5. Diabetes mellitus II 6. UTI 7. Right abdominal wall trauma from recent fall 8. Lumbosacral Degenerative Disc Disease 9. URI Reason Hospital Visit This is a 68 year old male who presented to my office for routine followup on his diabetes, hypertension and renal insufficiency who was noted to be in SVT with a heart rate in the 160s. He denied being symptomatic including denying palpitations, chest pain, dyspnea, dizziness, etc. He did admit to taking sudafed for a cold this morning and also stated he had been taking excedrin for pain in his testicle. He was also found to have a urinary tract infection. I recommended direct admission to the hospital but the patient refused. He did agree to go for a stat EKG which showed a wide QRS complex with RBBB and heart rate of 163. He was instructed to go directly to the emergency room and was given adenosine which then revealed underlying atrial flutter. Cardiology was consulted. He was started on a cardizem drip and admitted to the ICU. Discharge Summary Hospital Course Hospital Course This is a 68 year old male who presented to my office for routine followup on his diabetes, hypertension and renal insufficiency who was noted to be in SVT with a heart rate in the 160s. He denied being symptomatic including denying palpitations, chest pain, dyspnea, dizziness, etc. He did admit to taking sudafed for a cold that morning and also stated he had been taking excedrin for pain in his testicle as well as sciatic pain. He was also found to have a urinary tract infection. I recommended direct admission to the hospital but the patient refused at that time. He did agree to go for a stat EKG which showed a wide QRS complex with RBBB and heart rate of 163. He was instructed to go directly to the emergency room and was given adenosine which then revealed underlying atrial flutter. Cardiology was consulted. He was started on a cardizem drip and admitted to the ICU. He did have episodes of hypoxemia overnight and his states she thinks he has underlying sleep apnea. It was felt that this is the likely source of his atrial flutter. He was given IVFs for his underlying acute renal insufficiency and dehydration and his creatinine improved from 1.55 on admit to 1.3 at discharge. He is instructed to stop his HCTZ which he has been told to do before by myself but always resumes it do to edema. He was also started on eliquis. Cardioversion was planned by cardiology but the patient did convert back to a NSR early on the morning of discharge so he requested to be discharged and complete any further workup as an outpatient. Labs Laboratory Tests 09/05/18 11:34: D-Dimer 2.57H, Blood Urea Nitrogen 22H, Creatinine 1.55H, Glucose Level 121H, Myoglobin 199.9H 09/05/18 14:31: 09/05/18 17:25: Glucometer 127H 09/05/18 21:34: Glucometer 203H 09/06/18 03:05: White Blood Count 11.4H, Hemoglobin 12.7L, Hematocrit 39L, Neutrophils # (Auto) 8.4H, Monocytes # (Auto) 1.1H, Blood Urea Nitrogen 24H, Creatinine 1.37H, Glucose Level 144H, HDL Cholesterol 22L Procedures None. Discharge Physical Examination Allergies: Coded Allergies: No Known Drug Allergies (Unverified , 08/17/11) Vitals & I&Os Vital Signs Date Time Temp Pulse Resp B/P (MAP) Pulse Ox O2 Delivery O2 Flow Rate FiO2 09/06/18 08:00 Nasal Cannula 2.00 09/06/18 08:00 97.0 09/06/18 07:00 74 09/06/18 06:30 12 90 General Appearance: Alert, Oriented X3, Cooperative, No Acute Distress Respiratory: Clear to Auscultation Cardiovascular: Regular Rate (with frequent skipped beats) Abdominal: Normal Bowel Sounds, Soft, No Tenderness Extremities: No Clubbing, No Cyanosis, No Edema Psych/Mental Status: Mental Status NL, Mood NL Discharge Home Medications Reviewed and agree with Discharge Medication list on patient's Discharge Instruction sheet Instructions to Patient/Family Please see electronic discharge instructions given to patient. Clinical Quality Measures AMI/AHF: ASA po Prior to arrival: No DVT/VTE Risk/Contraindication: Risk Factor Score Per Nursin RFS Level Per Nursing on Admit: 3=High MILAD TRUJILLO DO Sep 06, 2018 11:05 am
== END 2018-09-06 10:40 | disposition home or self-care (01) | DRG 309 ==
LOC: EDUNIT# 11:22 → ER 11:23 → ICU 12:50
PROVIDERS: ADMIT Family Medicine; ATTEND Family Medicine
DX: I48.92 Unspecified atrial flutter (principal); I47.1 Supraventricular tachycardia; N39.0 Urinary tract infection, site not specified; I45.10 Unspecified right bundle-branch block; G47.33 Obstructive sleep apnea (adult) (pediatric); I12.9 Hypertensive chronic kidney disease with stage 1 through stage 4 chronic kidney disease, or unspecified chronic kidney disease; N18.9 Chronic kidney disease, unspecified; N28.9 Disorder of kidney and ureter, unspecified; E11.9 Type 2 diabetes mellitus without complications; J06.9 Acute upper respiratory infection, unspecified; M54.9 Dorsalgia, unspecified; M25.50 Pain in unspecified joint; N50.819 Testicular pain, unspecified; N52.9 Male erectile dysfunction, unspecified; M51.37 Other intervertebral disc degeneration, lumbosacral region; Z79.84 Long term (current) use of oral hypoglycemic drugs; W11.XXXD Fall on and from ladder, subsequent encounter; S30.1XXD Contusion of abdominal wall, subsequent encounter
CPT/HCPCS: 36415; 71045; 80048; 80053; 80061; 82962; 83690; 83735; 83874; 84100; 84443; 84484; 85025; 85379; 85610; 85730; 87081; 90471; 93005; 93041; 93306

== ENCOUNTER → 2018-09-05 | Outpatient (CLI) | payer MEDICARE, OTHER ==
[~2018-09-05] MED LIST: APIX5TAB PO; CALC-687 PO; CALC-706 PO; CEPH500C PO; ENAL20TA PO; GLYB5TAB6 PO; GLYB6TAB3 PO; HCT25T PO; HYDR25TA4 PO; INSU300I SQ; METF-397 PO; NEBI5TAB8 PO; NFNEB10T PO; PIOG1TAB PO; POTA99TA21 PO; POTA99TA7 PO; SILO8CAP PO; SITA100T PO; SITA100T12 PO; SULF-222 PO
== END ==
LOC: CARD 10:26
PROVIDERS: ATTEND Family Medicine
DX: R00.0 Tachycardia, unspecified (principal)
CPT/HCPCS: 93005

== ENCOUNTER → 2018-10-16 | Outpatient (CLI) | payer MEDICARE, OTHER ==
[~2018-10-16] VITALS: Ht 175.3 cm; Wt 103.9 kg
[~2018-10-16] MED LIST changes: +APIX5TAB PO; +CALC-687 PO; +CATHETER FLUSH 10 ML SYR IV PRN; +CEPH500C PO; +GLYB6TAB3 PO; +HYDR25TA4 PO; +INSU300I SQ; +METF-397 PO; +NEBI5TAB8 PO; +NFNEB10T PO; +POTA99TA21 PO; +REGADENOSON 0.4 MG/5 ML SYR (LEXISCAN) IV ONE; +SITA100T12 PO; +SULF-222 PO
[2018-10-16 09:38] VITALS: BP 181/100
[2018-10-16 09:42] VITALS: BP 158/97
== END ==
LOC: CARD 07:56
PROVIDERS: ATTEND Internal Medicine Cardiovascular Disease
DX: I10 Essential (primary) hypertension (principal); I48.92 Unspecified atrial flutter; E11.9 Type 2 diabetes mellitus without complications; G47.36 Sleep related hypoventilation in conditions classified elsewhere
CPT/HCPCS: 78452; 93017

== ENCOUNTER → 2019-04-22 | Outpatient (CLI) | payer MEDICARE, OTHER ==
[~2019-04-22] MED LIST changes: -CATHETER FLUSH 10 ML SYR IV PRN; -REGADENOSON 0.4 MG/5 ML SYR (LEXISCAN) IV ONE
--- NOTE | 2019-04-22 18:32 | Diagnostic Imaging Report ---
PROCEDURE: CT abdomen and pelvis without contrast. TECHNIQUE: Multiple contiguous axial images were obtained through the abdomen and pelvis without the use of intravenous contrast. Auto Exposure Controls were utilized during the CT exam to meet ALARA standards for radiation dose reduction. INDICATION: Hematuria. COMPARISON: Correlation is made with prior CT from 02/11/2013. FINDINGS: The lung bases are clear. The liver and gallbladder are unremarkable. No mass or biliary ductal dilatation is seen. The pancreas and spleen are unremarkable. No adrenal mass is detected. Left kidney does contain a small nonobstructing calculus in the lower pole of 2 to 3 mm in size. No right-sided renal calculi are seen. There is no hydronephrosis. No ureteral calculi are detected. Aorta is calcified but nonaneurysmal. Small and large bowel loops are normal in caliber. There is gas within the urinary bladder, perhaps owing to recent instrumentation. Clinical correlation is recommended. There is a large left inguinal hernia which contains portions of the sigmoid colon. No bowel obstruction is seen. There is no free fluid or fluid collection in the abdomen or pelvis. There is no free air. IMPRESSION: 1. Tiny nonobstructing left renal calculus. 2. Moderate gas within the urinary bladder. This could be owing to recent instrumentation and clinical correlation is recommended. 3. Left inguinal hernia containing portions of the sigmoid colon. No bowel obstruction is seen. Dictated by: Dictated on workstation # [id number]
== END ==
LOC: RAD 17:50
PROVIDERS: ATTEND Urology
DX: K40.90 Unilateral inguinal hernia, without obstruction or gangrene, not specified as recurrent (principal); R31.9 Hematuria, unspecified
CPT/HCPCS: 74176

== ENCOUNTER 2019-06-28 18:13 | Emergency (ER) | payer MEDICARE, OTHER ==
[~2019-06-28] VITALS: Ht 175.3 cm; Wt 90.7 kg
[2019-06-28 19:08] LABS: BASOPHILS % (AUTO) 0 % (0-10); EOSINOPHILS # (AUTO) 0.2 10^3/uL (0.0-0.3); EOSINOPHILS % (AUTO) 2 % (0-10); HEMATOCRIT 39 % (40-54); HEMOGLOBIN 13.3 G/DL (13.3-17.7); LYMPHOCYTES # (AUTO) 1.6 X 10^3 (1.0-4.0); LYMPHOCYTES % (AUTO) 13 % (12-44); MEAN CORPUSCULAR HEMOGLOBIN 29 PG (25-34); MEAN CORPUSCULAR HGB CONC 34 G/DL (32-36); MEAN CORPUSCULAR VOLUME 86 FL (80-99); MEAN PLATELET VOLUME 9.3 FL (7.4-10.4); MONOCYTES % (AUTO) 9 % (0-12); NEUTROPHILS # (AUTO) 9.2 X 10^3 (1.8-7.8); NEUTROPHILS % (AUTO) 77 % (42-75); PLATELET COUNT 196 10^3/uL (130-400); RED CELL DISTRIBUTION WIDTH 14.3 % (10.0-14.5)
[2019-06-28] MEDS ORDERED: NS IV 1000 ML 1,000 ML IV ONE (19:11)
--- NOTE | 2019-06-28 19:18 | ED GU-Male ---
General Chief Complaint: Male Reproductive Stated Complaint: BLOOD IN URINE Nursing Triage Note: PT TO ROOM 05 VIA W/C WITH C/O BLEEDING FROM PENIS STARTING TODAY. PT STATED STARTING ELEQUIS 3-4 MONTHS AGO AND HAS HAD A LITTLE BLEEDING SINCE STARTING THE MEDICINE. PT WAS SEEN BY DR ALARCON A FEW WEEKS AGO AND WAS TOLD THAT THE BLEEDING WAS DUE TO THE MEDICATION. PT STATES THAT THE BLEEDING BECAME WORSE TODAY. Source: patient (PT IS POOR/LIMITED HISTORIAN) History of Present Illness Date Seen by Provider: Jun 28, 2019 Time Seen by Provider: 18:38 Initial Comments PT ARRIVES VIA POV, IN WHEELCHAIR PT C/O BLOOD IN URINE SINCE NOON C/O PRESSURE OVER BLADDER AND "CRAMPING" OVER BLADDER NO FEVER NO NAUSEA/VOMITING PT IS ON ELIQUIS FOR ATRIAL FIB/FLUTTER NO HISTORY OF SIMILAR DENIES HISTORY OF PRIOR BLADDER OR PROSTATE PROBLEMS--HOWEVER ON REVIEW OF OLD RECORDS, PT HAS HISTORY OF KIDNEY STONES AND CHRONIC UTI'S. PT ALSO HAS HAD OUTPATIENT TESTS IN 2012 FOR HEMATURIA ( PRIOR TO BEING PLACED ON ELIQUIS) AND ALSO OUTPATIENT TESTS CT SCAN OF ABDOMEN-PELVIS 04/22/19 FOR HEMATURIA--HAD NON-OBSTRUCTING LEFT RENAL STONE, AND LARGE LEFT INGUINAL HERNIA CONTAINING SIGMOID COLON PT ALSO HAD PROCEDURE IN 2010 FOR REMOVAL OF FOREIGN BODY--A "MARCH BUG" FROM HIS BLADDER. PCP: DR. 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 ROSARIO Allergies and Home Medications Allergies Coded Allergies: No Known Drug Allergies (Unverified , 08/17/11) Home Medications Apixaban 5 Mg Tablet, 5 MG PO BID Prescribed by: DAIANA ROSARIO on 09/06/18 0705 Calcium Carbonate/Mag Oxide/Zn 1 Each Tablet, 1 TAB PO DAILY, (Reported) Cephalexin 500 Mg Capsule, 500 MG PO TID Prescribed by: MILAD TRUJILLO on 09/06/18 1022 Glyburide,Micronized 6 Mg Tablet, 6 MG PO BID, (Reported) Insulin Glargine,Hum.rec.anlog 300 Unit/1 Ml Insuln.pen, 50 UNIT SQ DAILY, (Reported) Metformin HCl 500 Mg Tablet, 500 MG PO BID, (Reported) Nebivolol HCl 10 Mg Tab, 10 MG PO DAILY Prescribed by: MILAD TRUJILLO on 09/06/18 1022 Sitagliptin Phosphate 100 Mg Tablet, 100 MG PO DAILY, (Reported) Patient Home Medication List Home Medication List Reviewed: Yes Review of Systems Review of Systems Constitutional: no symptoms reported; No chills, No diaphoresis, No dizziness, No fever Respiratory: no symptoms reported Cardiovascular: no symptoms reported Gastrointestinal: see HPI, abdominal pain; No nausea, No vomiting Genitourinary: see HPI, hematuria, incontinence, pain, urgency Musculoskeletal: no symptoms reported; No back pain Skin: no symptoms reported Psychiatric/Neurological: No Symptoms Reported Endocrine: No Symptoms Reported Hematologic/Lymphatic: See HPI Past Wvcvdbb-Ymganv-Jqnfiy Hx Patient Social History Alcohol Use: Denies Use Recreational Drug Use: No Smoking Status: Never a Smoker 2nd Hand Smoke Exposure: No Recent Foreign Travel: No Contact w/Someone Who Travel: No Recent Infectious Disease Expo: No Recent Hopitalizations: No Physical Abuse: No Sexual Abuse: No Mistreated: No Fear: No Immunizations Up To Date PED Vaccines UTD: No Seasonal Allergies Seasonal Allergies: No Past Medical History Surgeries: Yes (CYSTOSCOPY FOR REMOVAL OF FOREIGN BODY ( "LILIA BUG" ) FROM HIS BLADDER 2010. ) Bladder Surgery, Tonsillectomy Respiratory: No Cardiac: Yes (ATRIAL FIB/FLUTTER) Atrial Fibrillation, Hypertension Neurological: No Reproductive Disorders: Yes (ED) Sexually Transmitted Disease: No Genitourinary: Yes (CYSTOSCOPY FOR REMOVAL OF A "LILIA BUG" IN HIS BLADDER. ) Kidney Stones, UTI-Chronic Gastrointestinal: Yes (NO SURGERY ON HERNIA) Abdominal Hernia Musculoskeletal: No Endocrine: Yes Diabetes, Insulin dep HEENT: No Cancer: No Psychosocial: No Integumentary: No Blood Disorders: No Adverse Reaction/Blood Tranf: No Physical Exam Vital Signs Vital Signs - First Documented 06/28/19 18:38 Temp 97.4 Pulse 66 Resp 18 B/P (MAP) 124/81 (95) Pulse Ox 99 O2 Delivery Room Air Capillary Refill : Less Than 3 Seconds Height, Weight, BMI Height: 5'9.00" Weight: 200lbs. 0.0oz. [id number]; 33.8 BMI Method:Stated General Appearance: WD/WN, no apparent distress, other (HAS BEEN INCONTINENT OF BLOODY URINE--UNDERWEAR AND JEANS ARE SATURATED. PT ANXIOUS, MOANING AT TIMES. ) Respiratory: normal breath sounds, no respiratory distress, no accessory muscle use Gastrointestinal: soft, tenderness (SUPRAPUBIC), hernia (LEFT INGUINAL HERNIA, NON-TENDER) Back: no CVA tenderness Extremities: normal inspection, no pedal edema, normal capillary refill Neurologic/Psychiatric: flat polisher II-XII nml as tested, no motor/sensory deficits, alert, normal mood/affect, oriented x 3 Procedures/Interventions 22 G 3-WAY FAM CATHETER WAS PLACED AND CONTINUOUS BLADDER IRRIGATION WAS PERFORMED INITIALLY, HAD MUCH DIFFICULTY DUE TO EXTENSIVE CLOTS OBSTRUCTING THE TUBING, BUT EVENTUALLY WAS ABLE TO CLEAR THE OBSTRUCTION AND BLADDER IRRIGATED VERY WELL FOR REMAINDER OF ER STAY. Progress/Results/Core Measures Suspected Sepsis Recent Fever Within 48 Hours: No Infection Criteria Present: None New/Unexplained Altered Menta: No Sepsis Screen: No Definite Risk SIRS Temperature:97.4 Pulse: 66 Respiratory Rate: 18 Laboratory Tests 06/28/19 18:55: White Blood Count 12.0H Blood Pressure 124 /81 Mean: 95 Laboratory Tests 06/28/19 18:55: Creatinine 2.03H, INR Comment 1.2, Platelet Count 196, Total Bilirubin 0.5 Results/Orders Lab Results Laboratory Tests Test 06/28/19 18:55 Range/Units White Blood Count 12.0 H 4.3-11.0 10^3/uL Red Blood Count 4.61 4.35-5.85 10^6/uL Hemoglobin 13.3 13.3-17.7 G/DL Hematocrit 39 L 40-54 % Mean Corpuscular Volume 86 80-99 FL Mean Corpuscular Hemoglobin 29 25-34 PG Mean Corpuscular Hemoglobin Concent 34 32-36 G/DL Red Cell Distribution Width 14.3 10.0-14.5 % Platelet Count 196 130-400 10^3/uL Mean Platelet Volume 9.3 7.4-10.4 FL Neutrophils (%) (Auto) 77 H 42-75 % Lymphocytes (%) (Auto) 13 12-44 % Monocytes (%) (Auto) 9 0-12 % Eosinophils (%) (Auto) 2 0-10 % Basophils (%) (Auto) 0 0-10 % Neutrophils # (Auto) 9.2 H 1.8-7.8 X 10^3 Lymphocytes # (Auto) 1.6 1.0-4.0 X 10^3 Monocytes # (Auto) 1.0 0.0-1.0 X 10^3 Eosinophils # (Auto) 0.2 0.0-0.3 10^3/uL Basophils # (Auto) 0.0 0.0-0.1 10^3/uL Prothrombin Time 15.4 H 12.2-14.7 SEC INR Comment 1.2 0.8-1.4 Activated Partial Thromboplast Time 26 24-35 SEC Sodium Level 137 135-145 MMOL/L Potassium Level 4.2 3.6-5.0 MMOL/L Chloride Level 102 98-107 MMOL/L Carbon Dioxide Level 23 21-32 MMOL/L Anion Gap 12 5-14 MMOL/L Blood Urea Nitrogen 24 H 7-18 MG/DL Creatinine 2.03 H 0.60-1.30 MG/DL Estimat Glomerular Filtration Rate 33 BUN/Creatinine Ratio 12 Glucose Level 243 H 70-105 MG/DL Calcium Level 8.9 8.5-10.1 MG/DL Corrected Calcium 8.8 8.5-10.1 MG/DL Total Bilirubin 0.5 0.1-1.0 MG/DL Aspartate Amino Transf (AST/SGOT) 17 5-34 U/L Alanine Aminotransferase (ALT/SGPT) 23 0-55 U/L Alkaline Phosphatase 109 40-136 U/L Total Protein 7.2 6.4-8.2 GM/DL Albumin 4.1 3.2-4.5 GM/DL My Orders Orders - LATISHA EUBANKS DO Ed Iv/Invasive Line Start (06/28/19 18:39) Cbc With Automated Diff (06/28/19 18:39) Comprehensive Metabolic Panel (06/28/19 18:39) Protime With Inr (06/28/19 18:39) Partial Thromboplastin Time (06/28/19 18:39) Ct Abd/Pelvis Wo(Kidney Stone) (06/28/19 18:39) Abdomen, Flat & Upright/Decub (06/28/19 18:39) Bladder Scan (06/28/19 18:45) Ed Iv/Invasive Line Start (06/28/19 19:11) Ns Iv 1000 Ml (Sodium Chloride 0.9%) (06/28/19 19:11) Catheter(Urinary) Insert & Ass 03,15 (06/28/19 19:30) Lidocaine 2% (Urojet) (Xylocaine Urojet) (06/28/19 20:00) Lidocaine 2% (Urojet) (Xylocaine Urojet) (06/28/19 19:43) Fentanyl Injection (Sublimaze Injection (06/28/19 20:15) Glycopyrrolate Injection (Robinul Inject (06/28/19 20:15) Belladonna Alkaloid/Opium Supp (B & O [place] (06/28/19 20:45) Medications Given in ED Current Medications Medications Dose Ordered Sig/Dany Route Start Time Stop Time Status Last Admin Dose Admin Belladonna Alkaloids/Opium 30 mg ONCE ONCE [place] 06/28/19 20:45 06/28/19 20:46 DC 06/28/19 21:39 30 MG Fentanyl Citrate 50 mcg ONCE ONCE IVP 06/28/19 20:15 06/28/19 20:16 DC 06/28/19 20:16 50 MCG Glycopyrrolate 0.2 mg ONCE ONCE IV 06/28/19 20:15 06/28/19 20:16 DC 06/28/19 20:21 0.2 MG Lidocaine HCl 10 ml ONCE ONCE TOP 06/28/19 20:00 06/28/19 20:01 DC 06/28/19 20:16 10 ML Lidocaine HCl 10 ml STK-MED ONCE .ROUTE 06/28/19 19:43 06/28/19 19:51 DC 06/28/19 20:00 10 ML Sodium Chloride 1,000 ml @ 0 mls/hr Q0M ONCE IV 06/28/19 19:11 06/28/19 19:12 DC 06/28/19 19:32 999 MLS/HR Vital Signs/I&O 06/28/19 06/28/19 18:38 22:28 Temp 97.4 Pulse 66 64 Resp 18 19 B/P (MAP) 124/81 (95) 122/64 (83) Pulse Ox 99 98 O2 Delivery Room Air Room Air 06/29/19 00:00 Intake Total 1000 ml Balance 1000 ml Capillary Refill : Less Than 3 Seconds Blood Pressure Mean: 95 Progress Note : Progress Note BLADDER SCAN--89 ML URINE NOTED. EMPTY DOUCHE CONTAINER WITH LONG TIP--- TIP IS APPROXIMATELY 7 CM LONG-- WAS FOUND--COVERED IN BLOOD, AFTER IT FELL OUT OF PT'S POCKET ON DIRECT QUESTIONING OF PT OF WHETHER HE HAD PUT THIS IN HIS PENIS, HE STATES HE "PUT IT IN THERE TO STOP THE BLEEDING" "ON THE WAY HERE". OF NOTE, PT HAS HAD TO HAVE A "MARCH BUG" SURGICALLY REMOVED FROM HIS BLADDER IN 2010 PAIN AND BLADDER SPASMS IMPROVED AT TIME OF TRANSFER. Diagnostic Imaging Comments CT AND XRAYS PER RADIOLOGIST REPORTS AT 1944: -ABDOMEN XRAYS--SMALL CALCULUS IN LEFT KIDNEY, OTHERWISE NO ACUTE PROCESS -CT ABDOMEN/PELVIS--4 MM NON-OBSTRUCTING LEFT INTRARENAL CALCULUS. LARGE HETEROGENOUS DENSITY IN BLADDER, LIKELY A LARGE BLOOD CLOT, WITH AIR IN BLADDER. LEFT INGUINAL HERNIA CONTAINING SIGMOID COLON WITHOUT OBSTRUCTION OR INFLAMMATION. Reviewed: Reviewed by Me Departure Communication (Admissions) NO UROLOGY SERVICES AVAILABLE HERE ALL WEEKEND 2008--CALLED [facility], LEFT MESSAGE ON MACHINE 2024--CALLED [facility], LEFT MESSAGE ON MACHINE 2025--CALLED [facility]ONCOS[facility] UROLOGIST 2029--SPOKE WITH DR. COYLE, UROLOGIST, HE ADVISES TO ADMIT TO HOSPITALIST AND HE WILL SEE IN CONSULT. 2040--SPOKE WITH DR. GEORGE, HE DEFERS TO TECHNOLOGY COORDINATOR. 2054--SPOKE WITH DR. LAM, TECHNOLOGY COORDINATOR, ACCEPTS PT FOR ADMIT TO ICU. Impression Primary Impression: GROSS HEMATURIA WITH BLADDER OUTLET OBSTRUCTION Additional Impressions: ELIQUIS THERAPY SELF-INSTRUMENTATION BY PT Disposition: XFER SHT-TRM HOSP Condition: Stable Transfer Transfer Facility: [facility] Method of Transfer: EMS Departure-Patient Inst. Referrals: MILAD TRUJILLO DO (PCP/Family) Primary Care Physician LATISHA EUBANKS DO Jun 28, 2019 19:18
[2019-06-28 19:27] LABS: INR 1.2 (0.8-1.4); PROTHROMBIN TIME PATIENT 15.4 SEC (12.2-14.7)
[2019-06-28 19:29] LABS: ALBUMIN 4.1 GM/DL (3.2-4.5); BILIRUBIN,TOTAL 0.5 MG/DL (0.1-1.0); CALCIUM 8.9 MG/DL (8.5-10.1); CREATININE SERUM 2.03 MG/DL (0.60-1.30); POTASSIUM 4.2 MMOL/L (3.6-5.0); TOTAL PROTEIN 7.2 GM/DL (6.4-8.2)
--- NOTE | 2019-06-28 19:36 | Diagnostic Imaging Report ---
PROCEDURE: CT urinary tract, rule out kidney stone. TECHNIQUE: Multiple contiguous axial images were obtained through the abdomen and pelvis without the use of intravenous contrast. Auto Exposure Controls were utilized during the CT exam to meet ALARA standards for radiation dose reduction. INDICATION: Pelvic pain. The liver, gallbladder and bile ducts are normal. The spleen, pancreas, and adrenals are normal. There is a 4 mm nonobstructing calculus in the lower pole of the left kidney. The right kidney is normal. The ureters are normal. There is heterogeneous density seen within the bladder which is likely blood clot. There is some air in the bladder which could be from catheterization procedure or infection. No air within the wall of the bladder is seen. Fat planes around the prostate are well-maintained. There is left inguinal hernia containing fat and a loop of bowel. This is the sigmoid colon with no obstruction or edema. The small bowel is within normal limits. There is no free intraperitoneal air or fluid. IMPRESSION: There is what appears to be a large blood clot in the urinary bladder which is mixed with air. There may be an infection present. Underlying mass within the bladder cannot yet be excluded. Also seen is an inguinal hernia containing a loop of sigmoid colon. Dictated by: Dictated on workstation # [id number]
--- NOTE | 2019-06-28 19:39 | Diagnostic Imaging Report ---
INDICATION: Pelvic pain. Penile bleeding Supine and upright views of the abdomen shows normal bowel gas pattern. There is a 4 mm calculus in the lower pole of of the left kidney. No ureteral calculus is seen. No mass is evident. There is no acute bony abnormality. IMPRESSION: Small calculus in the left kidney. No acute abnormality is seen. Dictated by: Dictated on workstation # [id number]
[2019-06-28] MEDS ORDERED: LIDOCAINE UROJET 2% GEL 10 ML PKG ONE (19:43)
[2019-06-28] MEDS ORDERED: LIDOCAINE UROJET 2% GEL 10 ML PKG TOP ONE (20:00)
[2019-06-28] MEDS ORDERED: fentaNYL INJECTION 100 MCG/2 ML AMP IVP ONE (20:15)
[2019-06-28] MEDS ORDERED: GLYCOPYRROLATE 0.2 MG/ML (ROBINUL) 2 ML VIAL IV ONE (20:15)
[2019-06-28] MEDS ORDERED: BELLADONNA ALK/OPIUM (B & O) 30 MG SUPP PR ONE (20:45)
[2019-06-28 22:28] VITALS: BP 122/64
== END 2019-06-28 22:28 | disposition short-term general hospital (02) ==
LOC: EDUNIT# 18:13 → ER 18:13
DX: N32.0 Bladder-neck obstruction (principal); R31.0 Gross hematuria; I48.91 Unspecified atrial fibrillation; I10 Essential (primary) hypertension; E11.9 Type 2 diabetes mellitus without complications; Z87.440 Personal history of urinary (tract) infections; Z79.01 Long term (current) use of anticoagulants; Z87.442 Personal history of urinary calculi; Z79.4 Long term (current) use of insulin; Z90.89 Acquired absence of other organs
CPT/HCPCS: 36415; 74019; 74176; 80053; 85025; 85610; 85730

== ENCOUNTER → 2021-07-18 | Outpatient (CLI) | payer MEDICARE, OTHER ==
[~2021-07-18] MED LIST changes: +ENAL20TA16 PO
== END ==
LOC: CARD 13:00
PROVIDERS: ATTEND Family Medicine
DX: I48.91 Unspecified atrial fibrillation (principal)
CPT/HCPCS: 93005

== ENCOUNTER → 2023-06-22 | Outpatient (CLI) | payer MEDICARE, OTHER ==
[~2023-06-22] MED LIST changes: +ENAL-70 PO; -ENAL20TA16 PO; -POTA99TA21 PO; +POTA99TA26 PO
--- NOTE | 2023-06-22 14:20 | Diagnostic Imaging Report ---
PROCEDURE: US left lower extremity venous. TECHNIQUE: Multiple real-time grayscale images were obtained over the left lower extremity in various projections. Additional duplex Doppler and color Doppler images were also obtained. INDICATION: Left leg swelling. FINDINGS: There is no evidence of left lower extremity DVT. Left lower extremity deep venous system shows normal compressibility with normal response to augmentation and Valsalva. No fluid collection or mass is detected. IMPRESSION: No evidence of left lower extremity DVT. Dictated by: Dictated on workstation # [id number]
== END ==
LOC: RAD 12:42
PROVIDERS: ATTEND Family Medicine
DX: I70.242 Atherosclerosis of native arteries of left leg with ulceration of calf (principal)

== ENCOUNTER → 2023-06-22 | Outpatient (CLI) | payer MEDICARE, OTHER | LOC: WOUNDCARE 11:18 | PROVIDERS: ATTEND Family Medicine | DX: E11.621 Type 2 diabetes mellitus with foot ulcer (principal); L97.222 Non-pressure chronic ulcer of left calf with fat layer exposed; L97.522 Non-pressure chronic ulcer of other part of left foot with fat layer exposed; E11.622 Type 2 diabetes mellitus with other skin ulcer; I87.332 Chronic venous hypertension (idiopathic) with ulcer and inflammation of left lower extremity; I70.242 Atherosclerosis of native arteries of left leg with ulceration of calf; I89.0 Lymphedema, not elsewhere classified; L03.116 Cellulitis of left lower limb; E11.65 Type 2 diabetes mellitus with hyperglycemia; E66.01 Morbid (severe) obesity due to excess calories; Z68.35 Body mass index [BMI] 35.0-35.9, adult; E11.52 Type 2 diabetes mellitus with diabetic peripheral angiopathy with gangrene | CPT/HCPCS: A6197; G0463; 99215 ==